=== PATIENT | male | born 1965 | race American Indian/Alaskan Native ===

== ENCOUNTER 2016-12-19 12:34 | Emergency (ER) | payer BC ==
[2016-12-19] MEDS ORDERED: CATAPRES PO ONE (13:06)
[2016-12-19 13:07] LABS: Basophils % (Auto) 0.3 % (0.0-1.8); Eosinophils % (Auto) 2.3 % (0.0-4.3); Hemoglobin 13.3 gm/dl (11.8-15.2); Mean Corpuscular HGB Conc 33 % (32-34); Mean Corpuscular Hemoglobin 26 pg (28-32); Mean Corpuscular Volume 81 fl (84-94); Platelet Count 235 K/mm3 (140-440); Red Blood Count 5.06 M/mm3 (3.65-5.03); Red Cell Distribution Width 15.3 % (13.2-15.2); White Blood Count 10.5 K/mm3 (4.5-11.0)
--- NOTE | 2016-12-19 13:21 | Emergency Department Report ---
HPI - General Chief Complaint: High BP Time Seen by Provider: 12/19/16 13:06 - HPI HPI: Room 4 The patient is a 51-year-old male presenting with a chief complaint of hypertension. The patient states for the past 3 days he's had cold symptoms including chest congestion and a cough productive of brownish yellow sputum. Patient admits to chills and night sweats and subjective fever. The patient states he went to the nurse at his job this morning and was found to be hypertensive. Patient was subsequently advised to come to the ED for evaluation. The patient states he currently "feels fine." Location: [see above] Duration: 3 days Quality: Congestion Severity: Moderate Modifying factors: [see above] Context: [see above] Mode of transportation: Unknown ED Past Medical Hx - Past Medical History Previous Medical History?: Yes - Surgical History Past Surgical History?: No - Family History Family history: no significant - Social History Smoking Status: Never Smoker Substance Use Type: None - Medications Home Medications: Home Medications Medication Instructions Recorded Confirmed Last Taken Type Acetamin/Codeine 120-12Mg/5 ml 5 ml PO TID PRN #30 ml 02/13/15 Unknown Rx [Tylenol/Codeine] Levofloxacin [Levaquin TAB] 500 mg PO QDAY #10 tablet 12/19/16 Unknown Rx amLODIPine [Norvasc] 5 mg PO DAILY #90 tab 12/19/16 Unknown Rx ED Review of Systems ROS: Stated complaint: HIGH BP Other details as noted in HPI Comment: All other systems reviewed and negative Constitutional: chills, fever (subjective) Eyes: denies: eye pain, eye discharge, vision change ENT: denies: ear pain, throat pain Respiratory: cough, other (chest congestion) Cardiovascular: denies: chest pain, palpitations Endocrine: no symptoms reported Gastrointestinal: denies: abdominal pain, nausea, diarrhea Genitourinary: denies: urgency, dysuria Musculoskeletal: denies: back pain, joint swelling, arthralgia Skin: denies: rash, lesions Neurological: denies: headache, weakness, paresthesias Psychiatric: denies: anxiety, depression Hematological/Lymphatic: denies: easy bleeding, easy bruising Physical Exam - Physical Exam Vital Signs: Vital Signs 12/19/16 12:39 Temperature 99.6 F Pulse Rate 109 H Respiratory 18 Rate Blood Pressure 183/111 O2 Sat by Pulse 94 Oximetry Physical Exam: GENERAL: The patient is well-developed well-nourished male sitting in room not appearing to be in acute distress. [] HEENT: Normocephalic. Atraumatic. Extraocular motions are intact. Patient has moist mucous membranes. NECK: Supple. Trachea midline CHEST/LUNGS: Clear to auscultation. There is no respiratory distress noted. HEART/CARDIOVASCULAR: Regular. There is no tachycardia. There is no gallop rub or murmur. ABDOMEN: Abdomen is soft, nontender. Patient has normal bowel sounds. There is no abdominal distention. SKIN: There is no rash. There is no edema. There is no diaphoresis. NEURO: The patient is awake, alert, and oriented. The patient is cooperative. The patient has no focal neurologic deficits. The patient has normal speech and gait. Cranial nerves II through XII grossly intact, no drift. Negative Romberg. No pronator drift MUSCULOSKELETAL: There is a soft tissue mass right lower thoracic paraspinous region consistent with a lipoma. No overlying skin changes. There is no evidence of acute injury. ED Course Vital Signs 12/19/16 12:39 Temperature 99.6 F Pulse Rate 109 H Respiratory 18 Rate Blood Pressure 183/111 O2 Sat by Pulse 94 Oximetry ED Medical Decision Making - Lab Data Result diagrams: 12/19/16 12:59 12/19/16 12:59 Laboratory Tests 12/19/16 12/19/16 12:59 12:59 WBC 10.5 RBC 5.06 H Hgb 13.3 Hct 41.0 MCV 81 L MCH 26 L MCHC 33 RDW 15.3 H Plt Count 235 Lymph % (Auto) 21.1 Lynn % (Auto) 10.7 H Eos % (Auto) 2.3 Baso % (Auto) 0.3 Lymph # 2.2 Lynn # 1.1 H Eos # 0.2 Baso # 0.0 Seg Neutrophils % 65.6 Seg Neutrophils # 6.9 Sodium 143 Potassium 3.6 Chloride 101.3 Carbon Dioxide 26 Anion Gap 19 BUN 11 Creatinine 1.2 Estimated GFR > 60 BUN/Creatinine Ratio 9.16 Glucose 94 Calcium 8.6 Troponin T < 0.010 - EKG Data -: EKG Interpreted by Wi EKG shows normal: sinus rhythm Rate: tachycardia (104 bpm) - EKG Data When compared to previous EKG there are: previous EKG unavailable Interpretation: other (no ischemic changes seen) - Radiology Data Radiology results: image reviewed (chest x-ray) interpreted by me: Chest x-ray- air bronchogram right lower lobe. Questionable right middle lobe infiltrate. No pneumothorax - Differential Diagnosis hypertension, pneumonia, bronchitis Critical care attestation.: If time is entered above; I have spent that time in minutes in the direct care of this critically ill patient, excluding procedure time. ED Disposition Clinical Impression: Hypertension, Lipoma, Pneumonia Disposition: TO HOME OR SELFCARE Is pt being admited?: No Does the pt Need Aspirin: No Condition: Stable Instructions: Bacterial Pneumonia (ED), Hypertension (ED) Additional Instructions: Return to the emergency department immediately should you develop worsening symptoms, fever, inability to tolerate food or liquid or any other concerns. Prescriptions: amLODIPine [Norvasc] 5 mg PO DAILY #90 tab Levofloxacin [Levaquin TAB] 500 mg PO QDAY #10 tablet Referrals: PRIMARY CARE, [Primary Care Provider] - 3-5 Days AURY PAYTON MD [Staff Physician] - 3-5 Days (Dr. Payton is a surgeon. Please follow up with him for further evaluation of your lipoma) Time of Disposition: 15:15
[2016-12-19 13:29] LABS: Anion Gap 19 mmol/L; BUN/Creatinine Ratio 9.16; Blood Urea Nitrogen 11 mg/dL (9-20); Calcium 8.6 mg/dL (8.4-10.2); Carbon Dioxide 26 mmol/L (22-30); Chloride 101.3 mmol/L (98-107); Glucose 94 mg/dL (75-100); Potassium 3.6 mmol/L (3.6-5.0); Sodium 143 mmol/L (137-145)
--- NOTE | 2016-12-19 14:06 | XRay Report ---
ROUTINE CHEST, TWO VIEWS: HISTORY: Cough, fever. There is a moderate size air space opacity in the right middle lobe which could represent pneumonia. The remainder of the lungs are generally clear. No large pleural effusion or pneumothorax. Normal heart and mediastinal structures. IMPRESSION: Right middle lobe infiltrate concerning for pneumonia.
[2016-12-19] MEDS ORDERED: LEVAQUIN PO ONE (15:05)
[2016-12-19 15:58] VITALS: BP 155/92
== END 2016-12-19 15:58 | disposition home or self-care (01) ==
LOC: ED 12:34
DX: J18.9 Pneumonia, unspecified organism (principal); I10 Essential (primary) hypertension; D17.9 Benign lipomatous neoplasm, unspecified
CPT/HCPCS: 36415; 71020; 80048; 84484; 85025; 87040; 93005; 93010; 99284

== ENCOUNTER 2016-12-20 22:31 | Emergency (ER) | payer BC ==
[2016-12-21] MEDS ORDERED: NORVASC PO ONE (02:48)
[2016-12-21] MEDS ORDERED: NORVASC ONE (02:51)
--- NOTE | 2016-12-21 04:50 | Emergency Department Report ---
ED General Adult HPI - General Chief complaint: High BP Stated complaint: HIGH B/P Time Seen by Provider: 12/21/16 04:41 Source: patient Mode of arrival: Ambulatory Limitations: No Limitations - History of Present Illness Initial comments: pr is a 51 y/o aam with hx htn nonadherent to bp medication pt was seen in this ed on yesterday rx amlodipine however pt advises that he did not have ther money to get medications until today, pt given rx medication in ed, pt denies symptoms no dizziness no lightheaded no cp no sob pt avised to follow up with [facility] for pcp establisment. pt verbalized agreement and understanding of discharge plan. -: Gradual, year(s) Consistency: constant Improves with: none Worsens with: none Associated Symptoms: denies other symptoms - Related Data Previous Rx's Medication Instructions Recorded Last Taken Type Acetamin/Codeine 120-12Mg/5 ml 5 ml PO TID PRN #30 ml 02/13/15 Unknown Rx [Tylenol/Codeine] RX: Levofloxacin [Levaquin TAB] 500 mg PO QDAY #10 tablet 12/19/16 Unknown Rx RX: amLODIPine [Norvasc] 5 mg PO DAILY #90 tab 12/19/16 Unknown Rx Allergies Allergy/AdvReac Type Severity Reaction Status Date / Time No Known Allergies Allergy Verified 12/19/16 12:39 ED Review of Systems ROS: Stated complaint: HIGH B/P Other details as noted in HPI Constitutional: denies: chills, fever Eyes: denies: eye pain, eye discharge, vision change ENT: denies: ear pain, throat pain Respiratory: denies: cough, shortness of breath, wheezing Cardiovascular: denies: chest pain, palpitations Endocrine: no symptoms reported Gastrointestinal: denies: abdominal pain, nausea, diarrhea Genitourinary: denies: urgency, dysuria Musculoskeletal: denies: back pain, joint swelling, arthralgia Skin: denies: rash, lesions Neurological: denies: headache, weakness, paresthesias Psychiatric: denies: anxiety, depression Hematological/Lymphatic: denies: easy bleeding, easy bruising ED Past Medical Hx - Past Medical History Previous Medical History?: Yes Hx Hypertension: Yes - Surgical History Past Surgical History?: No - Social History Smoking Status: Never Smoker Substance Use Type: None - Medications Home Medications: Home Medications Medication Instructions Recorded Confirmed Last Taken Type Acetamin/Codeine 120-12Mg/5 ml 5 ml PO TID PRN #30 ml 02/13/15 Unknown Rx [Tylenol/Codeine] RX: Levofloxacin [Levaquin TAB] 500 mg PO QDAY #10 tablet 12/19/16 Unknown Rx RX: amLODIPine [Norvasc] 5 mg PO DAILY #90 tab 12/19/16 Unknown Rx ED Physical Exam - General Limitations: No Limitations General appearance: alert, in no apparent distress - Head Head exam: Present: atraumatic, normocephalic - Eye Eye exam: Present: normal appearance, PERRL - ENT ENT exam: Present: mucous membranes moist, TM's normal bilaterally - Neck Neck exam: Present: normal inspection, tenderness, full ROM. Absent: lymphadenopathy, thyromegaly - Respiratory Respiratory exam: Present: normal lung sounds bilaterally. Absent: respiratory distress, wheezes, stridor - Cardiovascular Cardiovascular Exam: Present: regular rate, normal rhythm. Absent: systolic murmur, diastolic murmur, rubs, gallop - GI/Abdominal GI/Abdominal exam: Present: soft - Rectal Rectal exam: Present: deferred - Extremities Exam Extremities exam: Present: normal inspection - Back Exam Back exam: Present: normal inspection - Neurological Exam Neurological exam: Present: alert, oriented X3, CN II-XII intact, normal gait, reflexes normal - Psychiatric Psychiatric exam: Present: normal affect, normal mood - Skin Skin exam: Present: warm, dry, intact, normal color, petechiae. Absent: rash ED Course Vital Signs 12/20/16 12/21/16 12/21/16 22:49 02:44 03:21 Temperature 99.3 F 98 F Pulse Rate 98 H 95 H Respiratory 18 20 Rate Blood Pressure 175/108 Blood Pressure 193/114 [193/114] Blood Pressure 193/114 [Right] O2 Sat by Pulse 98 96 Oximetry 12/21/16 04:05 Temperature Pulse Rate Respiratory Rate Blood Pressure Blood Pressure [193/114] Blood Pressure 184/115 [Right] O2 Sat by Pulse Oximetry ED Medical Decision Making - Medical Decision Making pt is a 51 y/o aam with hx htn nonadherent to bp medication pt was seen in this ed on yesterday rx amlodipine however pt advises that he did not have ther money to get medications until today, pt advises to get medicaion fompt given rx medication in ed, pt denies symptoms no dizziness no lightheaded no cp no sob pt avised to follow up with [facility] for pcp establisment. pt verbalized agreement and understanding of discharge plan. Critical care attestation.: If time is entered above; I have spent that time in minutes in the direct care of this critically ill patient, excluding procedure time. ED Disposition Clinical Impression: Essential (primary) hypertension Disposition: DC-01 TO HOME OR SELFCARE Is pt being admited?: No Does the pt Need Aspirin: No Condition: Good Instructions: Hypertension (ED) Additional Instructions: follow up with [facility] as directed: [phone] Referrals: PRIMARY CARE [Primary Care Provider] - 3-5 Days Forms: Work/School Release Form(ED) Time of Disposition: 05:07
[2016-12-21 05:16] VITALS: BP 174/109
== END 2016-12-21 05:16 | disposition home or self-care (01) ==
LOC: ED 22:31
DX: I10 Essential (primary) hypertension (principal)
CPT/HCPCS: 99282